=== PATIENT | male | born 1935 | race Caucasian/White ===

== ENCOUNTER 2016-10-28 05:00 | Day surgery (SDC) | payer MEDICARE, OTHER ==
[~2016-10-28 05:00] MED LIST: ACET500CAP PO; ANADS PO; AVODART PO; B12250T PO; BENEFIBE6 PO; CRESTOR10 PO; HALF81 PO; NEUR100 PO; NORCO1 TA1 PO; OTC STOOL SOFTENER PO; PRILO PO; VIAGRA50 MG PO; ZOCOR40 PO
== END 2016-10-28 23:59 | disposition home or self-care (01) ==
LOC: SDC 05:00
PROVIDERS: Orthopaedic Surgery
PROC: 3E0S3BZ Introduction of Anesthetic Agent into Epidural Space, Percutaneous Approach (ICD-10-PCS; 2016-10-28)
PROC: 3E0S33Z Introduction of Anti-inflammatory into Epidural Space, Percutaneous Approach (ICD-10-PCS; principal; 2016-10-28 07:45)
DX: M54.16 Radiculopathy, lumbar region (principal); M54.5 Low back pain; K21.9 Gastro-esophageal reflux disease without esophagitis; K64.9 Unspecified hemorrhoids; H91.90 Unspecified hearing loss, unspecified ear; E78.00 Pure hypercholesterolemia, unspecified; M19.90 Unspecified osteoarthritis, unspecified site; K57.92 Diverticulitis of intestine, part unspecified, without perforation or abscess without bleeding; Z87.442 Personal history of urinary calculi; Z98.41 Cataract extraction status, right eye; Z98.42 Cataract extraction status, left eye; Z96.1 Presence of intraocular lens; Z79.899 Other long term (current) drug therapy; Z97.4 Presence of external hearing-aid; Z90.49 Acquired absence of other specified parts of digestive tract
CPT/HCPCS: J1040; J2250; J3010; Q9967

== ENCOUNTER 2016-11-11 06:15 | Day surgery (SDC) | payer MEDICARE, OTHER | END 2016-11-11 09:21 | disposition home or self-care (01) | LOC: SDC 06:15 | PROVIDERS: Orthopaedic Surgery | PROC: B01BZZZ Fluoroscopy of Spinal Cord (ICD-10-PCS; 2016-11-11) | PROC: 3E0R3BZ Introduction of Anesthetic Agent into Spinal Canal, Percutaneous Approach (ICD-10-PCS; principal; 2016-11-11 07:15) | DX: M54.5 Low back pain (principal); M54.16 Radiculopathy, lumbar region; E78.00 Pure hypercholesterolemia, unspecified; M19.90 Unspecified osteoarthritis, unspecified site; K21.9 Gastro-esophageal reflux disease without esophagitis; Z90.49 Acquired absence of other specified parts of digestive tract; Z86.010 Personal history of colon polyps; Z87.442 Personal history of urinary calculi; Z98.890 Other specified postprocedural states; Z98.41 Cataract extraction status, right eye; Z98.42 Cataract extraction status, left eye | CPT/HCPCS: J1040; J2250; J3010; Q9967 ==